=== PATIENT | female | born 1995 | race Caucasian/White ===

== ENCOUNTER 2016-05-24 11:40 | Emergency (ER) | payer SELFPAY ==
[2016-05-24] MEDS ORDERED: Ibuprofen TAB* 600 MG PO ONE (15:04)
--- NOTE | 2016-05-24 15:04 | UC ---
FLU HPI - HPI Summary HPI Summary: one month of cough and congestion, now has worsening sinus pain and nasal congestion, fever and fatigue - History of Current Complaint Stated Complaint: COUGH/LOWER BACK PAIN Time Seen by Provider: 05/24/16 14:56 Hx Obtained From: Patient ?: No Onset/Duration: Gradual Onset, Lasting Weeks - 4, Worse Since - 1 week Severity Currently: Mild Severity Initially: Moderate Pain Intensity: 6 Pain Scale Used: 0-10 Numeric Associated Signs & Symptoms: Positive: Fever, Cough, Nasal Congestion, Headache - Allergy/Home Medications Allergies/Adverse Reactions: Allergies Allergy/AdvReac Type Severity Reaction Status Date / Time Sulfamethoxazole Allergy Hives Verified 05/24/16 15:08 w/Trimethoprim [From Bactrim] PMH/Surg Hx/FS Hx/Imm Hx Previously Healthy: No Respiratory History Of: Denies: COPD, Asthma, Pneumonia, Pulmonary Embolism Psychological History Of: Reports: Anxiety, Depression Denies: Bipolar Disorder, Schizophrenia Cancer History Of: Denies: Lung Cancer Other History Of: Negative For: Anticoagulant Therapy - Surgical History Surgical History: None - Family History Known Family History: Positive: None - Social History Occupation: Student Lives: With Family Alcohol Use: Occasionally Substance Use Type: Marijuana Smoking Status (MU): Smoker, Current Status Unknown Have You Smoked in the Last Year: No Cessation Counseling: Patient Advised to Stop - Immunization History Most Recent Influenza Vaccination: N/A Most Recent Pneumonia Vaccination: N/A Review of Systems Constitutional: Fever, Chills, Fatigue Skin: Negative Eyes: Negative ENT: Nasal Discharge Respiratory: Cough Cardiovascular: Negative Gastrointestinal: Negative Genitourinary: Negative Motor: Negative Neurovascular: Negative Musculoskeletal: Arthralgia Neurological: Headache Psychological: Negative All Other Systems Reviewed And Are Negative: Yes Physical Exam Triage Information Reviewed: Yes Appearance: Well-Nourished, Ill-Appearing - mild, Pain Distress - mild Vital Signs Reviewed: Yes Eye Exam: Normal Eyes: Positive: Conjunctiva Clear ENT Exam: Other ENT: Positive: Hearing grossly normal, Pharynx normal, Nasal congestion, Nasal drainage, TMs normal. Negative: Tonsillar swelling, Tonsillar exudate, Trismus , Muffled/hoarse voice Dental Exam: Normal Neck exam: Normal Neck: Positive: Supple, Nontender, No Lymphadenopathy Respiratory Exam: Normal Respiratory: Positive: Chest non-tender, Lungs clear, Normal breath sounds, No respiratory distress, No accessory muscle use Cardiovascular Exam: Normal Cardiovascular: Positive: RRR, No Murmur, Pulses Normal, Brisk Capillary Refill Abdominal Exam: Normal Abdomen Description: Positive: Nontender, No Organomegaly, Soft Bowel Sounds: Positive: Present Musculoskeletal Exam: Normal Musculoskeletal: Positive: Strength Intact, ROM Intact, No Edema Neurological Exam: Normal Neurological: Positive: Alert, Muscle Tone Normal Psychological Exam: Normal Skin Exam: Normal Diagnostics - Laboratory ABG Interpretation: ua 25 leuks (will culture) upreg (-), influenza a/b (-) Flu Course/Dx - Course Course Of Treatment: augmentin, flonase, (prn diflucan ) increase fluids, humodify air avoid cigartte and other smoke, follow with PCP or [facility] - Differential Dx/Diagnosis Differential Diagnosis/HQI/PQRI: Bronchitis, Influenza, Upper Respiratory Infection, Other - Sinusitis Provider Diagnoses: Acute Sinusitis Discharge - Discharge Plan Condition: Stable Disposition: HOME Prescriptions: Amoxicillin/Clavulanate TAB* [Augmentin TAB 875*] 875 mg PO BID #20 tab Fluconazole 150 MG (NF) [Diflucan 150 mg (NF)] 150 mg PO ONCE #1 tab Fluticasone NASAL SPRAY 50MCG* [Flonase NASAL SPRAY 50MCG*] 2 spray BOTH NARES DAILY #1 btl Patient Education Materials: Ibuprofen (By mouth), Sinusitis (ED) Forms: *School Release Referrals: [facility] [Outside] - 3 Days
[2016-05-24 15:08] VITALS: BP 125/72
== END 2016-05-24 15:41 | disposition home or self-care (01) ==
LOC: UCCORT 11:40
DX: J01.90 Acute sinusitis, unspecified (principal); F17.200 Nicotine dependence, unspecified, uncomplicated; Z71.6 Tobacco abuse counseling; Z88.2 Allergy status to sulfonamides
CPT/HCPCS: 81025; 87077; 87086; 87186; 87502; 99212; A9270-GY; G0463

== ENCOUNTER 2016-08-23 21:37 | Emergency (ER) | payer BC ==
[2016-08-23 21:51] VITALS: BP 120/79
--- NOTE | 2016-08-23 21:53 | UC ---
Abdominal Pain Female HPI - HPI Summary HPI Summary: The patient comes in today for: 1. Nausea: Onset: 3 days. Palliative/Provocative: Nothing makes it better or worse. Quality: Nausea. Region: ABdomen. Severity: 6-8/10 Time: Constant. Associated symptoms: : 6 weeks . Previous treatment: She called [facility] who has seen them for her . She was given a prescription over the phone but this has not helped. She called them yesterday. She was told to take Reglan, but no help. She had an ultrasound through [facility]. * - History of Current Complaint Stated Complaint: 6 WKS -STOMACH ACHE Time Seen by Provider: 08/23/16 21:47 Hx Last Menstrual Period: END March, Allergies/Adverse Reactions: Allergies Allergy/AdvReac Type Severity Reaction Status Date / Time Metronidazole [From Flagyl] Allergy Edema Verified 08/23/16 21:46 Sulfamethoxazole Allergy Hives Verified 05/24/16 15:08 w/Trimethoprim [From Bactrim] Home Medications: Home Medications Metoclopramide TAB* [Reglan TAB*] 10 mg PO Q6H PRN 08/23/16 [History Confirmed 08/23/16] PMH/Surg Hx/FS Hx/Imm Hx Previously Healthy: Yes Endocrine History Of: Denies: Diabetes, Thyroid Disease, Hyperthyroidism, Hypothyroidism, Dyslipidemia Cardiovascular History Of: Denies: Cardiac Disorders, Hypertension, Pacemaker/ICD, Myocardial Infarction , Congestive Heart Failure, Atrial Fibrillation, Deep Vein Thrombosis, Bleeding Disorders Respiratory History Of: Denies: COPD, Asthma, Pneumonia, Pulmonary Embolism GI/ History Of: Denies: Gastroesophageal Reflux, Ulcer, Gastrointestinal Bleed, Gall Bladder Disease, Kidney Stones, Diverticulitis, Renal Disease, Urosepsis Neurological History Of: Denies: TIA, CVA, Dementia, Seizures, Migraine Psychological History Of: Reports: Anxiety - She stopped her medications., Depression Denies: Bipolar Disorder, Schizophrenia, Post Traumatic Stress Disorder Cancer History Of: Denies: Lung Cancer, Colorectal Cancer, Breast Cancer, Prostate Cancer, Cervical Cancer Other History Of: Negative For: HIV, Hepatitis B, Hepatitis C, Anticoagulant Therapy - Surgical History Surgical History: None - Family History Known Family History: Positive: Hypertension Negative: Cardiac Disease - Social History Occupation: Employed Full-time Alcohol Use: Occasionally Substance Use Type: Marijuana Smoking Status (MU): Smoker, Current Status Unknown Have You Smoked in the Last Year: No - Immunization History Most Recent Influenza Vaccination: N/A Most Recent Pneumonia Vaccination: N/A Review of Systems Constitutional: Negative Skin: Negative Eyes: Negative ENT: Negative Respiratory: Negative Cardiovascular: Negative Gastrointestinal: Abdominal Pain, Vomiting Genitourinary: Negative All Other Systems Reviewed And Are Negative: Yes Physical Exam Triage Information Reviewed: Yes Appearance: No Pain Distress, Thin Vital Signs Reviewed: Yes Eyes: Positive: Conjunctiva Clear. Negative: Discharge ENT: Positive: Normal ENT inspection. Negative: Pharyngeal erythema, Nasal congestion, Nasal drainage, TM bulging, TM dull, TM red, Tonsillar swelling, Tonsillar exudate Dental: Negative: Gross Decay/Caries @, Dental Fracture @ Neck: Positive: Supple, Nontender, No Lymphadenopathy. Negative: Nuchal Rigidity Respiratory: Positive: Chest non-tender, Lungs clear, No respiratory distress, No accessory muscle use. Negative: Rhonchi, Wheezing Cardiovascular: Positive: RRR, No Murmur Abdomen Description: Positive: No Organomegaly, Soft. Negative: Nontender - She has tenderness to palpation of her left lower quadrant, epigastric area,, Distended, Guarding, Peritoneal Signs - She did not have rebound or percussion tenderness. Musculoskeletal: Positive: Strength Intact, ROM Intact, No Edema Neurological: Positive: Alert, Muscle Tone Normal Psychological: Positive: Normal Response To Family, Age Appropriate Behavior, Consolable Skin: Negative: rashes, breakdown Diagnostics - Laboratory Diagnostic Studies Completed/Ordered: Urine screen: Specific gravity: greater than 1.030. WBC: Trace. Nitrite: (-). Blood: (-). Protein: 2+. Glucose: (-) . Ketones: 3+ Abd Pain Female Course/Dx - Course Course Of Treatment: Patient was told that due to her abdominal pain, dehydration, and nausea (we only had zofran here which should not be given in 1st trimester), my recommendation was to go to the ER. She wanted to go to [facility] [place] [facility] ER. - Differential Dx/Diagnosis Provider Diagnoses: Dehydration, , nausea/vomiting - Physician Notification/Consults Discussed Patient Care With: Dr. Novak Time Discussed With Above Provider: 22:14 Discharge - Discharge Plan Condition: Stable Disposition: AGAINST MEDICAL ADVICE
== END 2016-08-23 22:26 | disposition left against medical advice (07) ==
LOC: UCCORT 21:37
DX: O21.1 Hyperemesis gravidarum with metabolic disturbance (principal); R10.814 Left lower quadrant abdominal tenderness; Z3A.01 Less than 8 weeks gestation of pregnancy; Z88.1 Allergy status to other antibiotic agents; Z88.2 Allergy status to sulfonamides; Z72.0 Tobacco use
CPT/HCPCS: 87086; 99212; G0463

== ENCOUNTER 2016-08-23 23:15 | Emergency (ER) | payer BC ==
[2016-08-24] MEDS ORDERED: NS 0.9% 1000 ML* 2,000 ML IV ONE (01:12)
[2016-08-24] MEDS ORDERED: Ondansetron INJ* 2 MG/ML VIAL IV ONE (01:12)
[2016-08-24 01:48] LABS: Hematocrit 38 % (35-47); Hemoglobin 12.8 g/dl (12.0-16.0); Mean Corpuscular HGB Conc 34 g/dl (31-36); Mean Corpuscular Hemoglobin 30 pg (27-31); Mean Corpuscular Volume 89 fL (80-97); Mean Platelet Volume 9 um3 (7.4-10.4); Red Blood Count 4.28 10^6/ul (4.0-5.4); Red Cell Distribution Width 15 % (10.5-15)
[2016-08-24 02:02] LABS: Albumin 4.5 g/dL (3.2-5.2); BUN/Creatinine Ratio 13.8 (8-20); Calcium 9.8 mg/dL (8.6-10.3); EGFR African American 172.2 (>60); EGFR Non-African American 133.9 (>60); Globulin 2.9 g/dL (2-4); Potassium 3.9 mmol/L (3.5-5.0); Total Bilirubin 0.8 mg/dL (0.2-1.0); Total Protein 7.4 g/dL (6.4-8.9)
[2016-08-24 04:40] LABS: Urine Bacteria 1+ (Absent); Urine Bilirubin Negative (Negative); Urine Glucose Negative (Negative); Urine Nitrite Negative (Negative)
[2016-08-24] MEDS ORDERED: Nitrofurantoin Macrocrystals* 50 MG CAP PO ONE (04:48)
--- NOTE | 2016-08-24 05:15 | ED ---
Mick Palomino Aidan, scribed for César Edouard on 08/24/16 at 0158 . Complex/Multi-Sys Presentation - HPI Summary HPI Summary: 20 y/o female presents to the ED via transfer from the Urgent Care with a complaint of acute, constant, moderate nausea and episodes of acute, moderate vomiting that both have persisted for the past 3 days. She took Reglan, which did not alleviate her symptoms. She is 6 weeks and 4 days . This is her first . She denies any vaginal bleeding or discharge. Last period was on July 06. - History Of Current Complaint Chief Complaint: EDNauseaVomitDiarrh Time Seen by Provider: 08/24/16 01:02 Onset/Duration: Sudden Onset, Lasting Days, Still Present Timing: Constant Severity Currently: Moderate Severity Initially: Moderate Aggravating Factor(s): unknown, however, the patient is 6 weeks . Alleviating Factor(s): Unknown, however, Reglan did not alleviate her symptoms. Associated Signs And Symptoms: Positive: Nausea, Vomiting Related History: Other - - Allergies/Home Medications Allergies/Adverse Reactions: Allergies Allergy/AdvReac Type Severity Reaction Status Date / Time Metronidazole [From Flagyl] Allergy Edema Verified 08/23/16 23:21 Sulfamethoxazole Allergy Hives Verified 08/23/16 23:21 w/Trimethoprim [From Bactrim] PMH/Surg Hx/FS Hx/Imm Hx Endocrine/Hematology History: Denies: Hx Anticoagulant Therapy, Hx Blood Disorders, Hx Diabetes, Hx Thyroid Disease Cardiovascular History: Denies: Hx Congestive Heart Failure, Hx Deep Vein Thrombosis, Hx Hypertension , Hx Myocardial Infarction, Hx Pacemaker/ICD Respiratory History: Reports: Hx Seasonal Allergies Denies: Hx Asthma, Hx Chronic Bronchitis, Hx Chronic Obstructive Pulmonary Disease (COPD), Hx Cystic Fibrosis, Hx Lung Cancer, Hx Pleural Effusion, Hx Pneumonia, Hx Pulmonary Edema, Hx Pulmonary Embolism, Hx Sleep Apnea, Other Respiratory Problems/Disorders GI History: Denies: Hx Gall Bladder Disease, Hx Gastrointestinal Bleed, Hx Ulcer, Hx Urosepsis History: Denies: Hx Kidney Stones, Hx Renal Disease Neurological History: Denies: Hx Dementia, Hx Migraine, Hx Seizures, Hx Transient Ischemic Attacks (TIA) Psychiatric History: Reports: Hx Anxiety - She stopped her medications., Hx Depression, Hx Community Mental Health Tx, Hx Suicide Attempt Denies: Hx Attention Deficit Hyperactivity Disorder, Hx Eating Disorder, Hx Panic Disorder, Hx Post Traumatic Stress Disorder, Hx Inpatient Treatment, Hx Schizophrenia, Hx Bipolar Disorder, Hx of Violent Episodes Against Others, Hx Substance Abuse, Other Psychiatric Issues/Disorders - Surgical History Surgery Procedure, Year, and Place: wisdom teeth Infectious Disease History: No Infectious Disease History: Reports: History Other Infectious Disease - chlamydia, trichomonas Denies: Hx Tuberculosis, Traveled Outside the [place] in Last 30 Days - Family History Known Family History: Positive: Hypertension Negative: Cardiac Disease - Social History Occupation: Employed Full-time Lives: Alone Alcohol Use: Occasionally Substance Use Type: Reports: Marijuana Hx Tobacco Use: - occasionally Smoking Status (MU): Smoker, Current Status Unknown Have You Smoked in the Last Year: No Review of Systems Constitutional: Negative Eyes: Negative ENT: Negative Cardiovascular: Negative Respiratory: Negative Positive: Vomiting, Nausea. Negative: Abdominal Pain, Diarrhea Genitourinary: Negative Musculoskeletal: Negative Skin: Negative Neurological: Negative Psychological: Normal All Other Systems Reviewed And Are Negative: Yes Physical Exam Triage Information Reviewed: Yes Vital Signs On Initial Exam: Initial Vitals Temp Pulse Resp BP Pulse Ox 98.8 F 90 16 127/74 100 08/23/16 23:15 08/23/16 23:15 08/23/16 23:15 08/23/16 23:15 08/23/16 23:15 Vital Signs Reviewed: Yes Appearance: Positive: Well-Appearing, No Pain Distress Skin: Positive: Warm, Skin Color Reflects Adequate Perfusion, Dry Head/Face: Positive: Normal Head/Face Inspection Eyes: Positive: Normal ENT: Positive: Normal ENT inspection Neck: Positive: Supple, Nontender Respiratory/Lung Sounds: Positive: Clear to Auscultation, Breath Sounds Present Cardiovascular: Positive: RRR Abdomen Description: Positive: Nontender, Soft Bowel Sounds: Positive: Present Musculoskeletal: Positive: Normal Neurological: Positive: Normal Psychiatric: Positive: Affect/Mood Appropriate Diagnostics - Vital Signs Vital Signs Temp Pulse Resp BP Pulse Ox 08/24/16 00:55 98.4 F 08/24/16 00:53 83 100 08/24/16 00:52 120/75 08/23/16 23:22 98.8 F 90 16 127/74 100 08/23/16 23:15 98.8 F 90 16 127/74 100 - Laboratory Lab Results: Lab Results 05/05/17 Range/Units 01:35 WBC 10.0 (3.5-10.8) 10^3/ul RBC 4.28 (4.0-5.4) 10^6/ul Hgb 12.8 (12.0-16.0) g/dl Hct 38 (35-47) % MCV 89 (80-97) fL MCH 30 (27-31) pg MCHC 34 (31-36) g/dl RDW 15 (10.5-15) % Plt Count 215 (150-450) 10^3/ul MPV 9 (7.4-10.4) um3 Neut % (Auto) 74.3 (38-83) % Lymph % (Auto) 20.0 L (25-47) % [place] % (Auto) 5.1 (1-9) % Eos % (Auto) 0.1 (0-6) % Baso % (Auto) 0.5 (0-2) % Absolute Neuts (auto) 7.4 (1.5-7.7) 10^3/ul Absolute Lymphs (auto) 2.0 (1.0-4.8) 10^3/ul Absolute Monos (auto) 0.5 (0-0.8) 10^3/ul Absolute Eos (auto) 0 (0-0.6) 10^3/ul Absolute Basos (auto) 0 (0-0.2) 10^3/ul Absolute Nucleated RBC 0 10^3/ul Nucleated RBC % 0 Result Diagrams: 08/24/16 01:35 08/24/16 01:35 Lab Statement: Any lab studies that have been ordered have been reviewed, and results considered in the medical decision making process. - Ultrasound No standard instances Ultrasound Interpretation: No Acute Changes - IMPRESSION: SMALL FREE FLUID RIGHT ADNEXA 204CM CORPUS LUTEUM RIGHT OVARY. NO OVARIAN TORSION. COLOR FLOW WITH APPROPRIATE ARTERIAL AND VENOUS WAVEFORMS. Ultrasound Interpretation Completed By: Radiologist Complex Multi-Symp Course/Dx Course Of Treatment: This is a 20 y/o female presenting with acute episodes of moderate nausea and vomiting. She is 6 weeks into her first . At [facility], she was given Reglan, which did not alleviate her symptoms. Pt denies any vaginal bleeding or discharge. Labs and US were conducted. Us indicated IUP and urine indicated UTI. She will be given antibiotics. - Diagnoses Provider Diagnoses: UTI (urinary tract infection), IUP, , Hyperemesis Discharge - Discharge Plan Condition: Stable Disposition: HOME Discharge Disposition Comment: Please follow up with [facility]. Prescriptions: Nitrofurantoin Monohyd Macro [Macrobid] 100 mg PO BID #20 cap Ondansetron ODT TAB* [Zofran 4 MG Odt TAB*] 4 mg PO Q8H PRN #20 tab.odt PRN Reason: Nausea Patient Education Materials: Urinary Tract Infection in Women (ED) Referrals: Non Staff,Doctor [Primary Care Provider] - Adelita Mcintosh MD [Medical Doctor] - The documentation as recorded by the Mick caban Aidan accurately reflects the service I personally performed and the decisions made by , César Edouard.
[2016-08-24 05:31] VITALS: BP 98/57
--- NOTE | 2016-08-24 08:22 | RAD ---
HISTORY: 3 days of nausea and vomiting in a female. The report references a August 15, 2016 ultrasound that indicated "normal IUP corresponding to gestational age of 6 weeks and 4 days" COMPARISONS: None TECHNIQUE: Multiple transverse and longitudinal ultrasound images were obtained of the pelvis using grayscale, color flow, spectral and M-mode sonographic imaging. FINDINGS: UTERUS: The uterus is normal in shape, size, contour, and echotexture. GESTATION: There is a single live intrauterine gestation. The crown-rump length measures 0.64 cm yielding a gestational age of 6 weeks and 4 days. The mean gestational sac diameter measures 1.84 centimeters yielding a gestational age of 6 weeks and 6 days. cardiac motion is detected at a rate of 127 beats per minute. A 3 mm yolk sac is visualized. CUL-DE-SAC: Trace free fluid is noted adjacent to the right ovary. RIGHT OVARY: The right ovary measures 3.5 x 2.4 x 3.5 cm. An anechoic and avascular structure in the right ovary measuring 2.4 x 1.0 x 2.0 cm could represent a corpus luteum. LEFT OVARY: The left ovary measures 3.0 x 1.4 x 2.1 cm. IMPRESSION: Single live intrauterine gestation with a crown-rump length yielding a gestational age of 6 weeks and 4 days.
== END 2016-08-24 05:31 | disposition home or self-care (01) ==
LOC: ED 23:15
DX: O23.41 Unspecified infection of urinary tract in pregnancy, first trimester (principal); P01.8 Newborn affected by other maternal complications of pregnancy; Z3A.01 Less than 8 weeks gestation of pregnancy
CPT/HCPCS: 36415; 76817; 80053; 81003; 81015; 84702; 85025; 86850; 86900; 86901; 96374; 99284; A9270-GY; J2405

== ENCOUNTER 2017-02-05 12:38 | Inpatient (IN) | payer BC ==
[2017-02-05] MEDS ORDERED: Betamethasone INJ* 6 MG/ML 5 ML VIAL (30 MG) ONE (13:27)
[2017-02-05] MEDS: Betamethasone INJ* 6 MG/ML 5 ML VIAL (30 MG) IM SCH (13:30)
[2017-02-05] MEDS ORDERED: Labetalol IV* 5 MG/ML 20 ML VIAL ONE (13:51)
[2017-02-05] MEDS ORDERED: Labetalol IV* 5 MG/ML 20 ML VIAL IV PUSH ONE ×2 (13:59→14:16)
[2017-02-05 14:02] LABS: Hematocrit 34 % (35-47); Hemoglobin 11.6 g/dl (12.0-16.0); Mean Corpuscular HGB Conc 34 g/dl (31-36); Mean Corpuscular Hemoglobin 31 pg (27-31); Mean Corpuscular Volume 90 fL (80-97); Mean Platelet Volume 10 um3 (7.4-10.4); Red Cell Distribution Width 14 % (10.5-15); White Blood Count 11.5 10^3/ul (3.5-10.8)
[2017-02-05 14:20] LABS: Albumin 2.7 g/dL (3.2-5.2); BUN/Creatinine Ratio 15.9 (8-20); Calcium 7.9 mg/dL (8.6-10.3); EGFR African American 139.5 (>60); EGFR Non-African American 108.5 (>60); Globulin 2.8 g/dL (2-4); Potassium 4.1 mmol/L (3.5-5.0); Total Bilirubin 0.4 mg/dL (0.2-1.0); Total Protein 5.5 g/dL (6.4-8.9)
[2017-02-05] MEDS ORDERED: Magnesium Sulf 4 GM/100 ML IV* 4,000 MG/100 ML BAG IVPB ONE (14:22)
[2017-02-05] MEDS ORDERED: Magnesium Sulfate OB PREMIX* 40 GM/1,000 ML BAG ONE (14:25)
[2017-02-05 14:32] LABS: Urine Bacteria Absent (Absent); Urine Bilirubin Negative (Negative); Urine Glucose Negative (Negative); Urine Nitrite Negative (Negative)
[2017-02-05] MEDS ORDERED: ceFOXitin 2 GM IVPREMIX* 2 GM/50 ML BAG ONE (14:42)
[2017-02-05] MEDS ORDERED: Lidocaine 2% PF * 5 ML VIAL ONE (14:49)
[2017-02-05] MEDS ORDERED: Succinylcholine* 20 MG/ML 10 ML VIAL ONE (14:49)
[2017-02-05] MEDS ORDERED: Propofol* 10 MG/ML 20 ML BTL IV PUSH ONE (14:49)
[2017-02-05] MEDS ORDERED: fentaNYL* 50 MCG/ML 2 ML VIAL (100 MCG VIAL) ONE (14:52)
[2017-02-05] MEDS ORDERED: Midazolam* 1 MG/ML 2 ML VIAL (2 MG) ONE (14:52)
--- NOTE | 2017-02-05 14:52 | RAD ---
Indication: Preeclampsia. Real-time sonography of the CT was performed. There is a single intrauterine gestation in cephalic presentation. Posterior placenta without evidence of placenta previa is noted. heart activity is noted at 144 bpm. Amniotic fluid index is decreased measuring 6.4. BPD measures 7.0 cm corresponding to gestational age of 28 weeks 1 day. Head circumference measures 25.0 cm corresponding to gestational ages of 27 weeks 1 day. Abdominal discomfort measures 21.9 cm corresponding to gestational age of 26 weeks 3 days. Femur length measures 4.7 cm corresponding to gestational age of 25 weeks 6 days. Estimated weight is 123 g. The estimated weight is at the 2nd percentile which is decreased. There is a small amount of ascites near the cord insertion. IMPRESSION: There is a single intrauterine gestation with a gestational age of [birth year], 2016 this was determined by initial ultrasound. Estimated weight is 923 g which is at the 2nd percentile. There is a small amount of ascites noted. Decreased amniotic fluid index of 6.4.
[2017-02-05] MEDS ORDERED: OXYTOCIN* 10 UNITS/ML 1 ML VIAL ONE (14:56)
[2017-02-05] MEDS ORDERED: Ondansetron INJ* 2 MG/ML VIAL ONE (14:56)
[2017-02-05] MEDS ORDERED: Dexamethasone IV* 4 MG/ML 1 ML (4 MG) ONE (14:56)
[2017-02-05] MEDS ORDERED: Famotidine IV* 10 MG/ML 2 ML (20 mg) ONE (14:56)
[2017-02-05] MEDS ORDERED: Magnesium Sulfate 2 GM IV* 2 GM/50 ML BAG IVPB ONE (15:00)
[2017-02-05] MEDS ORDERED: Ondansetron INJ* 2 MG/ML VIAL IV PRN (15:13)
[2017-02-05] MEDS ORDERED: DiMENhydriNATE IV* 50 MG/ML VIAL IV PUSH PRN (15:13)
[2017-02-05] MEDS ORDERED: PROCHLORPERAZINE INJ 5 MG/ML 2 ML VIAL IV PRN (15:13)
[2017-02-05] MEDS ORDERED: HYDROmorphone INJ* 1 MG/ML CARPUJECT SYRINGE IV PRN (15:13)
[2017-02-05] MEDS: fentaNYL* 50 MCG/ML 2 ML VIAL (100 MCG VIAL) IV PRN ×2 (16:46→16:55)
[2017-02-05] MEDS ORDERED: Glycerin ADULT SUPP PR PRN (17:16)
[2017-02-05] MEDS ORDERED: Witch Hazel PAD* JAR TOPICAL PRN (17:16)
[2017-02-05] MEDS ORDERED: Acetaminophen TAB* 325 MG PO PRN (17:16)
[2017-02-05] MEDS ORDERED: Dibucaine 1% 28.35 GM TUBE PR PRN (17:16)
[2017-02-05] MEDS ORDERED: Zolpidem TAB* 5 MG PO PRN (17:16)
[2017-02-05] MEDS ORDERED: oxyCODONE/Acetamin 5/325 MG* TAB ONE (17:43)
[2017-02-05] MEDS: oxyCODONE/Acetamin 5/325 MG* TAB PO PRN (17:44)
[2017-02-05] MEDS ORDERED: Oxytocin in LR* 20 UNITS/1,000 ML BAG IVPB ONE (18:07)
[2017-02-05] MEDS: Labetalol TAB* 100 MG PO SCH (20:34)
[2017-02-05] MEDS: Simethicone TAB* 80 MG TAB.CHEW PO SCH (20:37)
--- NOTE | 2017-02-05 20:57 | RAD ---
Indication: Evaluate for foreign body. Single view of the pelvis and abdomen demonstrates caterina overlying the lower pelvis. No evidence of a foreign body is otherwise noted. Bowel gas pattern is unremarkable. IMPRESSION: Surgical caterina are noted across the pelvis. No other foreign body is identified.
[2017-02-06] MEDS: Ibuprofen TAB* 600 MG PO PRN ×4 (02:14→20:03)
[2017-02-06] MEDS: Simethicone TAB* 80 MG TAB.CHEW PO SCH ×5 (04:00→20:06)
[2017-02-06] MEDS: Docusate CAP* 100 MG PO SCH ×4 (04:01→20:04)
[2017-02-06] MEDS: oxyCODONE/Acetamin 5/325 MG* TAB PO PRN ×4 (04:31→22:58)
[2017-02-06] MEDS ORDERED: diPHENhydraMINE PO* 25 MG ONE (06:26)
[2017-02-06 07:49] LABS: Add Diff/Slide Review? Slide Review Added; Comments Flag Yes; Hematocrit 34 % (35-47); Hemoglobin 11.5 g/dl (12.0-16.0); Mean Corpuscular HGB Conc 34 g/dl (31-36); Mean Corpuscular Hemoglobin 31 pg (27-31); Mean Corpuscular Volume 90 fL (80-97); Mean Platelet Volume 10 um3 (7.4-10.4); Red Blood Count 3.74 10^6/ul (4.0-5.4); Red Cell Distribution Width 14 % (10.5-15); White Blood Count 22.8 10^3/ul (3.5-10.8)
[2017-02-06] MEDS ORDERED: Magnesium Sulfate OB PREMIX* 40 GM/1,000 ML BAG ONE (08:00)
[2017-02-06] MEDS: Labetalol TAB* 100 MG PO SCH ×4 (08:46→22:18)
[2017-02-06] MEDS ORDERED: Magnesium Sulfate 2 GM IV* 2 GM/50 ML BAG IVPB ONE (12:00)
[2017-02-06] MEDS ORDERED: Magnesium Sulfate OB PREMIX* 40 GM/1,000 ML BAG IVPB SCH (13:20)
[2017-02-06] MEDS: diPHENhydraMINE PO* 25 MG PO PRN (14:22)
[2017-02-06] MEDS: Ferrous Gluconate TAB* 324 MG TAB PO SCH ×2 (22:09→22:10)
[2017-02-07] MEDS: Betamethasone INJ* 6 MG/ML 5 ML VIAL (30 MG) IM SCH (01:18)
[2017-02-07] MEDS: Ibuprofen TAB* 600 MG PO PRN ×3 (01:48→15:36)
[2017-02-07] MEDS: diPHENhydraMINE PO* 25 MG PO PRN ×2 (02:05→23:13)
[2017-02-07] MEDS: oxyCODONE/Acetamin 5/325 MG* TAB PO PRN ×4 (02:05→23:12)
[2017-02-07] MEDS: Simethicone TAB* 80 MG TAB.CHEW PO SCH ×4 (08:49→20:10)
[2017-02-07] MEDS: Docusate CAP* 100 MG PO SCH ×3 (08:50→20:10)
[2017-02-07] MEDS: Labetalol TAB* 100 MG PO SCH ×2 (09:32→20:10)
[2017-02-08] MEDS: Ibuprofen TAB* 600 MG PO PRN ×2 (02:36→09:06)
[2017-02-08] MEDS: Labetalol TAB* 100 MG PO SCH (09:06)
[2017-02-08] MEDS: Simethicone TAB* 80 MG TAB.CHEW PO SCH ×2 (09:06→13:19)
[2017-02-08] MEDS: Docusate CAP* 100 MG PO SCH ×2 (09:06→13:19)
[2017-02-08] MEDS: oxyCODONE/Acetamin 5/325 MG* TAB PO PRN (10:23)
[2017-02-08 16:22] VITALS: BP 149/91
--- NOTE | 2017-02-09 11:47 | OP ---
CC: [facility] OPERATIVE REPORT: DATE OF OPERATION: 02/05/17 DATE OF : 89 SURGEON: Michael Beltran MD ASSISTANTS: 1. Katelyn Early (surgical technician) 2. Hung Briggs MD ANESTHESIOLOGIST: Nick Rendon MD ANESTHESIA: General anesthetic and endotracheal intubation. PRE-OP DIAGNOSES: Severe preeclampsia, intrauterine growth restriction, oligohydramnios, and category III tracing with acute bradycardic episode. POST-OP DIAGNOSES: Severe preeclampsia, intrauterine growth restriction, oligohydramnios, and category III tracing with acute bradycardic episode. OPERATIVE PROCEDURE: Stat primary low-transverse section. ESTIMATED BLOOD LOSS: Less than 500 cc. URINE OUTPUT: 50 cc of clear urine. FLUIDS: She received 1 L of IV crystalloid fluid. SPECIMEN: Sent to Pathology was cord blood and cord gas. FINDINGS: Delivery of a female infant over scant meconium fluid with Apgars of 0 and 0. The placenta was removed manually and sent to Pathology. The uterus, adnexa, bowel, and bladder were all within normal limits. COMPLICATIONS: Delivery of demise. DESCRIPTION OF PROCEDURE: The patient was taken to the operating room where she was identified, placed on the operating table, the patient was placed in the supine position, prepped and draped in a normal sterile fashion. General anesthetic with endotracheal intubation was obtained without difficulty and then we proceeded with a section. A Pfannenstiel skin incision was made with a knife and carried through to the underlying layer of fascia. The fascia was nicked in the midline, extended laterally with curved Christian scissors. The fascia was then grasped superiorly and inferiorly with Génesis clamps and dissected off sharply from the rectus muscle. The rectus muscle was in the midline bluntly. The peritoneum was identified, grasped with pickups, entered sharply with Metzenbaum scissors, and extended superiorly, inferiorly bluntly. A bladder blade was then inserted into the patient's abdomen. A low- transverse uterine incision was made with a knife about 2 cm above the bladder fold, the incision was extended laterally, bluntly. The amniotic sac was ruptured and there was scant fluid meconium stained. The infant's head was then grasped and delivered atraumatically. The rest of the 's body was then delivered. After milking the cord, we clamped and cut the cord. The baby was then handed off to awaiting entertainment usher. Cord bloods were obtained. Cord gas was obtained as well and sent to Pathology. The placenta was removed manually. The uterus was then exteriorized, cleared of all clot and debris using moist laparotomy sponges. The uterine incision was then closed using 0 Polysorb suture in a running locked fashion with a second imbricating layer of 0 Polysorb suture with good hemostasis noted at the uterine incision. At this point, the uterus was then returned to the patient's abdomen. The gutters were then cleared off all clot and debris using moist laparotomy sponges. All the sponges were removed from the patient's abdomen. The uterine incision was noted to be hemostatic. At this point, the peritoneum was closed using 3-0 Polysorb suture in a running fashion. The fascia was closed using 0 Polysorb suture in a running fashion and the skin was closed with 4-0 Monocryl subcuticular stitch with interrupted caterina to hold these together. The patient tolerated the procedure well. Sponge, lap, and needle counts were correct x2. She was then transferred to the recovery room area in stable condition. [id number]/[facility] #: [id number] ODALYS
== END 2017-02-08 14:10 | disposition home or self-care (01) | DRG 540 ==
LOC: MCHOBOUT 12:38 → MCHOB 13:56
PROVIDERS: ADMIT Obstetrics & Gynecology; ATTEND Obstetrics & Gynecology
PROC: 4A1HXCZ Monitoring of Products of Conception, Cardiac Rate, External Approach (ICD-10-PCS; 2017-02-05)
PROC: 10D00Z1 Extraction of Products of Conception, Low, Open Approach (ICD-10-PCS; principal; 2017-02-05 14:38)
DX: O14.14 Severe pre-eclampsia complicating childbirth (principal); O41.03X0 Oligohydramnios, third trimester, not applicable or unspecified; O36.4XX0 Maternal care for intrauterine death, not applicable or unspecified; O76 Abnormality in fetal heart rate and rhythm complicating labor and delivery; Z3A.30 30 weeks gestation of pregnancy; Z37.1 Single stillbirth; Z88.2 Allergy status to sulfonamides; Z88.1 Allergy status to other antibiotic agents; O36.5930 Maternal care for other known or suspected poor fetal growth, third trimester, not applicable or unspecified; O77.0 Labor and delivery complicated by meconium in amniotic fluid
CPT/HCPCS: 31500; 36415; 36510; 74000; 76815; 80053; 81003; 81015; 84550; 85025; 85610; 86850; 86900; 86901; 88307; 92950; 94760; 99465; A9270-GY; J0330; J0694; J0702; J1100; J2250; J2405; J2590; J2704; J3010; J3475